=== PATIENT | female | born 1990 | race Hispanic/Latino ===

== ENCOUNTER 2021-07-24 08:17 | Emergency (ER) | payer OTHER ==
[~2021-07-24] VITALS: Ht 180.3 cm; Wt 96.3 kg
[~2021-07-24 08:17] MED LIST: BACLOFEN10 MG PO; HYDROCODON-ACE1 EA10 PO; METFORMIN HCL500 M1 PO; METHYLPREDNISOLO4 M1 PO; NORCO 5-325 TA1 EACH PO; PREDNISONE20 MG PO; SHAROBEL0.35 MG PO
[2021-07-24] MEDS ORDERED: HUMULIN N100 UNIT/1 SUB-Q (08:48)
[2021-07-24] MEDS ORDERED: BACTRIM DS TAB1 EACH PO (10:22)
== END 2021-07-24 12:50 | disposition home or self-care (01) ==
LOC: ED 08:17
DX: O26.831 Pregnancy related renal disease, first trimester (principal); N12 Tubulo-interstitial nephritis, not specified as acute or chronic; O24.429 Gestational diabetes mellitus in childbirth, unspecified control; Z79.84 Long term (current) use of oral hypoglycemic drugs; Z79.4 Long term (current) use of insulin; Z3A.13 13 weeks gestation of pregnancy
CPT/HCPCS: 36415; 76801; 76817; 80053; 81001; 83690; 85025; 96365; 99284-25; J0696; J7030

== ENCOUNTER 2021-07-31 04:08 | Emergency (ER) | payer OTHER ==
[~2021-07-31] VITALS: Ht 180.3 cm; Wt 95.2 kg
[~2021-07-31 04:08] MED LIST changes: +BACTRIM DS TAB1 EACH PO; +HUMULIN N100 UNIT/1 SUB-Q
--- OUTSIDE RECORDS SUMMARY | 2021-07-31 04:16 | XMS ---
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 Yogi has no Care Guidelines for this patient. Bhaskar V[facility] (12 MO.) [facility] [place] [facility] TOTAL 3 NOTE: Visits indicate total known visits. ED/C VISIT TRACKING (12 MO.) [facility]2021 04[facility] [place] [facility] COMPLAINT: - ABD PAIN, FEVER 14 WKS 07/24/2021 08:18 [facility] [place] TYPE: Emergency COMPLAINT: - SIDE, ABD, AND BACK PAIN 13 WKS DIAGNOSES: - 13 weeks gestation of - Lower abdominal pain, unspecified - Gestational diabetes mellitus in childbirth, unspecified control - Tubulo-interstitial nephritis, not specified as acute or chronic - penitentiary (current) use of insulin - related renal disease, first trimester - penitentiary (current) use of oral hypoglycemic drugs 01/04/2021 12:37 [facility] [place] TYPE: Emergency COMPLAINT: - L LEG/GROIN PAIN DIAGNOSES: - Radiculopathy, lumbar region - penitentiary (current) use of oral hypoglycemic drugs - Other alf (current) drug therapy - Unspecified abdominal pain INPATIENT VISIT TRACKING (12 MO.) 07/28/2021 11:34 [facility] [place] TYPE: Observation COMPLAINT: - PYLONEPHRITIS 10/22/2020 00:02 [facility] [place] TYPE: [facility] COMPLAINT: - INDUCTION DIAGNOSES: - Streptococcus B carrier state complicating childbirth - 37 weeks gestation of - 37 weeks gestation of - Type O blood, Rh positive - Gestational diabetes mellitus in childbirth, unspecified control - Gestational diabetes mellitus in childbirth, unspecified control - Single live - Single live - Contact with and (suspected) exposure to COVID-19 - Type O blood, Rh positive [email or web address]
[2021-07-31] MEDS ORDERED: AMOX TR-K CLV1 EAC1 PO (04:18)
[2021-07-31] MEDS ORDERED: PERCOCET 5-3251 EACH PO (07:48)
== END 2021-07-31 07:58 | disposition home or self-care (01) ==
LOC: ED 04:08
DX: O99.891 Other specified diseases and conditions complicating pregnancy (principal); O24.112 Pre-existing type 2 diabetes mellitus, in pregnancy, second trimester; M54.50 Low back pain, unspecified; R10.12 Left upper quadrant pain; Z79.4 Long term (current) use of insulin; Z3A.14 14 weeks gestation of pregnancy
CPT/HCPCS: 36415; 80053; 81001; 83690; 85025; J1170; J2405

== ENCOUNTER 2022-01-10 09:37 | Inpatient (IN) | payer OTHER ==
[~2022-01-10] VITALS: Ht 165.1 cm; Wt 98.9 kg
[~2022-01-10 09:37] MED LIST changes: +AMOX TR-K CLV1 EAC1 PO; +PERCOCET 5-3251 EACH PO
--- NOTE | 2022-01-10 12:45 | NUR ---
01/10/22 Elroy5 Cherelle Ortega 1237-PATIENT ARRIVED BACK TO ROOM 104 FOR POST OP RECOVERY. PATIENT AWAKE DENIES PAIN OR NAUSEA. RA 99% RR EVEN. SPINAL LEVEL T10. IV TO RIGHT AC CDI LR WITH 20 PITOCIN INFUSING. DOMÍNGUEZ CATHETER DRAINING YELLOW URINE. FUNDUS FIRM 1 BELOW UMBILICUS LIGHT RUBRA DRAINAGE. S.O AT BEDSIDE HOLDING BABY.
--- NOTE | 2022-01-11 09:02 | PR ---
[facility] [address] [facility] [place], [place] [address] Signed PP Progress Notes Datetime Report Generated by CPN: 01/11/2022 09:02 SUBJECTIVE: [id number] Pain: Within Normal Limits Pain Comments: nausea yesterday but has resolved Nausea/Vomiting: Denies Flatus: Yes Vital Signs: [id number] Vital Signs: Reviewed; Within Normal Limits Cardiovascular: Normal Respiratory: Normal Abdomen/Uterus: Abnormal Lochia: Normal Vulva/Perineum: Not Done Breasts: Not Done CVA Tenderness: Not Done Extremities: Normal Incision: Normal Progress: Normal Exam Comments: Abdomen with active BS. Fundus firm, NT @ U-1. H/H 11.5/34.2, WBC 10.6, plat 318k sugars all in range IMPRESSION/PLAN/PROCEDURES: [id number] Impression: Normal Progression Other Plans: ambulate, shower Procedures: None Progress Notes: Doing well. Will increase activity. Signing Physician: Uzma Varela MD Copies: ~ *Electronically Signed* 01/11/22901 UZMA VARELA MD PATIENT NAME: TABITHA ABAD PROGRESS NOTE DATE OF : 89 PHYSICIAN: UZMA VARELA MD RPT #: [id number] REPORT IS CONFIDENTIAL AND NOT TO BE RELEASED WITHOUT AUTHORIZATION
--- NOTE | 2022-01-11 09:25 | OR ---
[facility] [address] [place], [place] [address] Signed DATE OF OPERATION: 01/10/2022 SURGEON: Uzma Varela MD NEUROLOGY PHYSICIAN ASSISTANT: THANH Kang DO. PREOPERATIVE DIAGNOSES: 36+ week , poor antepartum testing, type 2 diabetes, breech presentation. POSTOPERATIVE DIAGNOSES: 36+ week , poor antepartum testing, type 2 diabetes, breech presentation. PROCEDURE: Primary section with low segment transverse uterine incision. ANESTHESIA: Spinal. ESTIMATED BLOOD LOSS: 600 mL. DRAINS: Ann catheter. INDICATIONS AND FINDINGS: The patient is a 31-year-old female 4, para 2, SAB 1, who was admitted at 36 and 4/7th weeks after her biophysical was read as 2/8. The only 2 was for her amniotic fluid. She has been having twice weekly testing because of her Type 2 diabetes. The NST was reassuring, however, because of the abnormal BPP, it was felt that delivery was indicated. She was taken to the operating room where she was delivered of a little girl via lower segment transverse uterine incision as a double footling breech with Apgars of 9 and 9 and weight of 7 pounds 4 ounces. There was polyhydramnios noted with lots of clear fluid. The uterus, tubes, ovaries, and placenta otherwise appeared normal. DESCRIPTION OF PROCEDURE: The patient was prepped and draped in the supine position. A Pfannenstiel skin incision was made and carried down through the fascia. The incision was extended laterally. The inferior and superior fascial flaps were created. The peritoneum was opened bluntly and the incision extended bluntly. The Kameron retractor was then placed. The uterine Electronically Signed By: UZMA VARELA MD 01/11/22 0925 PATIENT NAME: TABITHA ABAD OPERATIVE REPORT DATE OF : 89 REPORT #: [id number] PHYSICIAN: UZMA VARELA MD PCP: UZMA VARELA MD REPORT IS CONFIDENTIAL AND NOT TO BE RELEASED WITHOUT AUTHORIZATION [facility] [address] [place], [place] [address] Signed incision was made at the upper aspect of the peritoneal reflection. The incision extended bluntly. The rupture of membranes was done artificially. The baby was delivered with the above findings and handed off to the pediatric staff in attendance. The placenta was removed manually. The uterus was explored with a lap tape assuring no remaining fragments. The edges of the incision were identified and the uterus was closed in 2 layers using 0 Monocryl. The first layer was a running locking stitch and the second was a vertical imbricating stitch. Good hemostasis was noted. The abdomen was irrigated and inspected and felt to be hemostatic. The retractor was removed. The peritoneum identified. The peritoneum was closed with a running suture of 3-0 Vicryl. The muscles were brought together with interrupted sutures of 0 Vicryl. Bleeding points were controlled with cautery. A [id number] of 0 Vicryl was required near the right mid muscle layer for bleeding. The muscles were raw, however, and Shelton was used to further assure hemostasis. The fascia was then closed from each angle to the midline with a running suture of 0 Vicryl. The subcu space was closed with interrupted sutures of 0 Vicryl after assuring hemostasis. Some of the Shelton was also used in this layer. The skin was closed with nakita. All sponge and needle counts were correct. She tolerated the procedure well and was taken to the recovery room in good condition. Uzma Varela MD PJW/DEVINL /[id number] cc: Idalia Kang DO Copies: IDALIA KANG (THANH) ~ Electronically Signed By: UZMA VARELA MD 01/11/22 0925 PATIENT NAME: TABITHA ABAD OPERATIVE REPORT DATE OF : 89 REPORT #: [id number] PHYSICIAN: UZMA VARELA MD PCP: UZMA VARELA MD REPORT IS CONFIDENTIAL AND NOT TO BE RELEASED WITHOUT AUTHORIZATION
--- NOTE | 2022-01-12 08:50 | PR ---
[facility] [address] [facility] [facility] [place], [place] [address] Signed PP Progress Notes Datetime Report Generated by CPN: 01/12/2022 08:50 SUBJECTIVE: [id number] Pain: Within Normal Limits Pain Comments: nausea yesterday but has resolved Nausea/Vomiting: Denies Flatus: Yes Vital Signs: [id number] Vital Signs: Reviewed; Within Normal Limits Cardiovascular: Not Done Respiratory: Not Done Abdomen/Uterus: Abnormal Lochia: Normal Vulva/Perineum: Not Done Breasts: Not Done CVA Tenderness: Not Done Extremities: Normal Incision: Normal Progress: Normal Exam Comments: Abdomen with active BS. Fundus firm, NT @ U-1. IMPRESSION/PLAN/PROCEDURES: [id number] Impression: Normal Progression Plan: Remove Arely; Discharge Other Plans: ambulate, shower Procedures: None Progress Notes: Doing well. She is ready for D/C. Signing Physician: Uzma Varela MD Copies: ~ *Electronically Signed* 01/12/22 0850 UZMA VARELA MD PATIENT NAME: TABITHA ABAD PROGRESS NOTE DATE OF : 92 PHYSICIAN: UZMA VARELA MD RPT #: [id number] REPORT IS CONFIDENTIAL AND NOT TO BE RELEASED WITHOUT AUTHORIZATION
== END 2022-01-12 18:30 | disposition home or self-care (01) | DRG 786 ==
LOC: FBCO 09:37 → US 10:00 → FBC 10:43
PROVIDERS: ADMIT Obstetrics & Gynecology; ATTEND Obstetrics & Gynecology
PROC: 10D00Z1 Extraction of Products of Conception, Low, Open Approach (ICD-10-PCS; principal; 2022-01-10 11:30)
DX: O32.1XX0 Maternal care for breech presentation, not applicable or unspecified (principal); O24.12 Pre-existing type 2 diabetes mellitus, in childbirth; O60.14X0 Preterm labor third trimester with preterm delivery third trimester, not applicable or unspecified; O76 Abnormality in fetal heart rate and rhythm complicating labor and delivery; Z3A.36 36 weeks gestation of pregnancy; Z37.0 Single live birth; Z20.822 Contact with and (suspected) exposure to COVID-19; E11.9 Type 2 diabetes mellitus without complications; Z79.84 Long term (current) use of oral hypoglycemic drugs
CPT/HCPCS: 01961; 36415; 76819; 82803; 85027; 86850; 86900; 86901; A9270; C9803; J0690; J1644; J1815; J1885; J2001; J2274; J2405; J2590; J3010; J7121; U0003